=== PATIENT | female | born 1980 | race Caucasian/White ===

== ENCOUNTER 2017-08-16 12:41 | Emergency (ER) | payer OTHER ==
[~2017-08-16] VITALS: Ht 152.4 cm; Wt 79.4 kg
[2017-08-16 12:43] VITALS: Ht 152.4 cm; Wt 79.4 kg
[2017-08-16 14:11] VITALS: BP 130/64
== END 2017-08-16 14:11 | disposition home or self-care (01) ==
LOC: ED 12:41
DX: S51.812A Laceration without foreign body of left forearm, initial encounter (principal); J45.909 Unspecified asthma, uncomplicated; Z88.8 Allergy status to other drugs, medicaments and biological substances; W45.8XXA Other foreign body or object entering through skin, initial encounter; Y93.89 Activity, other specified; Y92.89 Other specified places as the place of occurrence of the external cause; Y99.8 Other external cause status